=== PATIENT | female | born 1935 | race Caucasian/White ===

== ENCOUNTER 2021-09-24 06:50 | Emergency (ER) | payer OTHER ==
[~2021-09-24] VITALS: Ht 157.5 cm; Wt 54.4 kg
--- NOTE | 2021-09-24 06:57 | NUR ---
TO ER BED 7. [id number] FROM HOME FOR SOB X 0200. PLACE ON O2 VIA NC @ 2LPM SATTING 94%.RA @ 88%. PT IS ALERT AND ORIENTED. AMBUALTORY WITH STEDAY GAIT. BREATHING IS EVEN AND NONLABORED. CONNECTED TO MONITOR.
--- NOTE | 2021-09-24 06:58 | NUR ---
COVID SWAB COLLECTED AND SENT TO LAB
[2021-09-24] MEDS ORDERED: FUROSEMIDE 40 MG/4 ML VIAL IV ONE (07:00)
[2021-09-24] MEDS ORDERED: FUROSEMIDE 40 MG/4 ML VIAL ONE (07:02)
--- NOTE | 2021-09-24 07:09 | NUR ---
BLOOD COLLECTED AND SENT TO LAB
--- NOTE | 2021-09-24 07:09 | NUR ---
EMT AT BEDSIDE FOR EKG
[2021-09-24 07:15] LABS: BASOPHILS % (AUTO) 0.2 % (0.0-2.0); EOSINOPHILS % (AUTO) 1.2 % (0.0-6.0); HEMATOCRIT 22 % (33-45); HEMOGLOBIN 7.3 g/dL (11.5-14.8); LYMPHOCYTES # (AUTO) 0.9 K/uL (0.8-4.8); LYMPHOCYTES % (AUTO) 10.4 % (20.0-44.0); MEAN CORPUSCULAR HGB CONC 33 g/dl (31.0-36.0); MEAN CORPUSCULAR VOLUME 87 fL (82-100); MONOCYTES # (AUTO) 0.6 K/uL (0.1-1.30); MONOCYTES % (AUTO) 6.7 % (2.0-12.0); NEUTROPHILS # (AUTO) 7.4 K/uL (1.8-8.9); NEUTROPHILS % (AUTO) 81.5 % (43.0-81.0); PLATELET COUNT (AUTO) 179 K/uL (150-450); RED BLOOD CELL COUNT(AUTO) 2.53 MIL/uL (4.0-5.2); WHITE BLOOD COUNT (AUTO) 9.1 K/uL (4.3-11.0)
--- NOTE | 2021-09-24 07:23 | NUR ---
PER FAMILY. PT GOES TO DIALYSIS ON MONDAY AND THURSDAYS. LAST DIALYSIS WAS ON MONDAY. MACHINE REPAIRER: DR. SHANI [phone]
[2021-09-24 07:32] LABS: CALCIUM, SERUM 8.9 mg/dL (8.5-10.1); CARBON DIOXIDE 27 mmol/L (21-32); CHLORIDE 100 mmol/L (98-107); CREATININE 6.9 mg/dL (0.6-1.3); GLUCOSE 126 mg/dL (74-106); POTASSIUM 4.8 mmol/L (3.5-5.1); SODIUM SERUM 137 mmol/L (136-145); UREA NITROGEN, BLOOD 61 mg/dL (7-18)
[2021-09-24 07:43] LABS: ALANINE AMINOTRANSFERASE 34 U/L (12-78); ALBUMIN 3.6 g/dL (3.4-5.0); ALKALINE PHOSPHATASE 70 U/L (46-116); ASPARTATE AMINOTRANSFERASE 22 U/L (15-37); BILIRUBIN,DIRECT 0.2 mg/dL (0.0-0.2); BILIRUBIN,TOTAL 0.6 mg/dL (0.2-1.0); TOTAL PROTEIN, SERUM 7.2 g/dL (6.4-8.2)
[2021-09-24] MEDS ORDERED: CALC667C6 PO (08:40)
[2021-09-24] MEDS ORDERED: HYDR-4076 PO (08:40)
[2021-09-24] MEDS ORDERED: AMLO-212 PO (08:40)
[2021-09-24] MEDS ORDERED: ISOS30TA86 PO (08:40)
[2021-09-24] MEDS ORDERED: ATOR20TA PO (08:40)
--- NOTE | 2021-09-24 08:46 | NUR ---
CALLED [facility] [phone] DR. KING WILL CALL US BACK.
--- NOTE | 2021-09-24 11:08 | NUR ---
[facility] CALLED [facility] ACCEPTED TO [place] UNDER [address] KENDALL ROOM [id number] PLEASE CALL [phone] FOR REPORT ALS WITH PRN AT [phone].
--- NOTE | 2021-09-24 11:31 | NUR ---
[facility] ETA PER PATT: [phone]
--- NOTE | 2021-09-24 12:41 | NUR ---
REPORT GIVEN TO AMBULANCE STAFF
[2021-09-24 12:55] VITALS: BP 124/82
--- NOTE | 2021-09-24 13:17 | NUR ---
REPORT GIVEN TO LIANNE NEFF FROM [facility].
--- NOTE | 2021-09-24 13:30 | NUR ---
PICKED UP BY TRANSPORT IN STABLE CONDITION
== END 2021-09-24 13:43 | disposition short-term general hospital (02) ==
LOC: ER 06:57
DX: I13.2 Hypertensive heart and chronic kidney disease with heart failure and with stage 5 chronic kidney disease, or end stage renal disease (principal); N18.6 End stage renal disease; I50.9 Heart failure, unspecified; Z99.2 Dependence on renal dialysis; J96.21 Acute and chronic respiratory failure with hypoxia; E78.5 Hyperlipidemia, unspecified; Z88.5 Allergy status to narcotic agent; Z79.899 Other long term (current) drug therapy; Z20.822 Contact with and (suspected) exposure to COVID-19
CPT/HCPCS: 99291; 96374; 87426; 93005; 71045; 85025; 80048; 80076; 36415; 84484 ×3; 87081; 83880; J1940; C9803